=== PATIENT | male | born 1955 | race Caucasian/White ===

== ENCOUNTER 2019-11-09 10:27 | Outpatient (REF) | payer BC, SELFPAY ==
[2019-11-09 21:33] LABS: ALT 25 U/L (16-63); AST 15 U/L (15-37); Albumin 3.8 g/dL (3.4-5.0); Alkaline Phosphatase 69 U/L (46-116); Anion Gap 9.8 mmol/L (3-11); BUN 13 mg/dL (7-18); Bilirubin, Total 0.3 mg/dL (0.2-1.0); CO2 28.2 mmol/L (21.0-32.0); CREATININE 1.06 mg/dL (0.70-1.30); Calcium 8.9 mg/dL (8.5-10.1); Calculated LDL 132 mg/dL; Chloride 105 mmol/L (98-107); Cholesterol 198 mg/dL (<200); Glucose 105 mg/dL (74-106); HDL Cholesterol 41 mg/dL (40-60); Potassium 4.2 mmol/L (3.5-5.1); Sodium 143 mmol/L (136-145); Triglyceride 127 mg/dL (<150)
[2019-11-11 10:18] LABS: PSA, Screening 0.7 ng/mL (0.0-4.5)
== END 2019-11-09 10:47 ==
LOC: LBN 10:27
PROVIDERS: PCP Internal Medicine; Visit Provider Internal Medicine
DX: E78.5 Hyperlipidemia, unspecified (principal); Z00.00 Encounter for general adult medical examination without abnormal findings; N40.0 Benign prostatic hyperplasia without lower urinary tract symptoms; Z12.5 Encounter for screening for malignant neoplasm of prostate; J45.30 Mild persistent asthma, uncomplicated
CPT/HCPCS: 80053; 80061; 84153

== ENCOUNTER 2019-11-12 20:26 | Outpatient (REF) | payer BC, SELFPAY ==
[2019-11-12 20:19] LABS: Absolute Basophil Count 0.02 k/cumm (0.0-0.2); Absolute Eosinophil Count 0.07 k/cumm (0.0-0.7); Absolute Lymphocyte Count 1.37 k/cumm (1.2-3.4); Absolute Monocyte Count 0.57 k/cumm (0.11-0.7); Absolute Neutrophil Count 3.46 k/cumm (1.2-6.7); Basophils % 0.4; Eosinophils % 1.3; HCT 42.5 % (40.0-50.0); HGB 14.5 g/dL (13.5-17.5); Mean Corp. HGB Concentration 34.1 g/dL (32.0-36.0); Mean Corpuscular Hemoglobin 33.9 pg (27.0-33.0); Mean Corpuscular Volume 99.3 fL (80-95); Mean Platelet Volume 9.5 fL (8.0-11.0); Monocytes % 10.4; Neutrophils % 62.9; Platelet Count 243 x1000/uL (130-400); RBC 4.28 m/cumm (4.50-6.00); RBC Distribution Width 12.9 % (11.8-14.1); White Blood Cell Count 5.49 k/cumm (4.4-10.8)
[2019-11-12 20:38] LABS: TSH (W/Ref FT4) 3.99 uIU/mL (0.36-3.74)
[2019-11-12 20:54] LABS: FREE T4 0.86 ng/dL (0.76-1.46)
== END 2019-11-12 20:46 ==
LOC: NCHCN 20:26
PROVIDERS: PCP Internal Medicine; Visit Provider Internal Medicine
DX: R53.83 Other fatigue (principal)
CPT/HCPCS: 84439; 84443; 85025

== ENCOUNTER 2020-04-26 13:11 | Outpatient (REF) | payer BC, SELFPAY ==
[2020-04-26 22:14] LABS: Hemoglobin A1C 5.4 % (3.8-5.6)
[2020-04-26 22:16] LABS: Calculated LDL 137 mg/dL (<100); Cholesterol 207 mg/dL (<200); Glucose 93 mg/dL (74-106); HDL Cholesterol 50 mg/dL (40-60); TSH (W/Ref FT4) 4.35 uIU/mL (0.36-3.74); Triglyceride 100 mg/dL (<150)
[2020-04-26 22:42] LABS: FREE T4 0.95 ng/dL (0.76-1.46)
== END 2020-04-26 13:31 ==
LOC: NCHCN 13:11
PROVIDERS: PCP Internal Medicine; Visit Provider Internal Medicine
DX: R73.01 Impaired fasting glucose (principal); R53.83 Other fatigue; E78.5 Hyperlipidemia, unspecified; E03.9 Hypothyroidism, unspecified
CPT/HCPCS: 80061; 82947; 83036; 84439; 84443

== ENCOUNTER 2020-11-13 14:03 | Outpatient (REF) | payer BC, SELFPAY ==
[2020-11-13 13:48] LABS: BUN 14 mg/dL (7-18); CREATININE 1.03 mg/dL (0.70-1.30); Calcium 9.1 mg/dL (8.5-10.1); Calculated LDL 123 mg/dL (<100); Chloride 104 mmol/L (98-107); Cholesterol 191 mg/dL (<200); Glucose 91 mg/dL (74-106); HDL Cholesterol 57 mg/dL (40-60); Potassium 4.1 mmol/L (3.5-5.1); Sodium 138 mmol/L (136-145); Triglyceride 55 mg/dL (<150)
[2020-11-13 14:10] LABS: Hemoglobin A1C 5.4 % (<5.7)
== END 2020-11-13 14:23 ==
LOC: NCHCN 14:03
PROVIDERS: PCP Internal Medicine; Visit Provider Internal Medicine
DX: Z00.00 Encounter for general adult medical examination without abnormal findings (principal); R73.03 Prediabetes; E03.9 Hypothyroidism, unspecified; E78.5 Hyperlipidemia, unspecified
CPT/HCPCS: 80048; 80061; 83036

== ENCOUNTER 2021-11-19 15:56 | Outpatient (REF) | payer BC, SELFPAY ==
[2021-11-19 16:19] LABS: Hemoglobin A1C 5.5 % (<5.7)
[2021-11-19 16:51] LABS: Anion Gap 7.2 mmol/L (3-11); BUN 20 mg/dL (7-18); CO2 28.8 mmol/L (21.0-32.0); Calcium 8.8 mg/dL (8.5-10.1); Calculated LDL 120 mg/dL (<100); Chloride 104 mmol/L (98-107); Cholesterol 191 mg/dL (<200); Glucose 93 mg/dL (74-106); HDL Cholesterol 51 mg/dL (40-60); Sodium 140 mmol/L (136-145); Triglyceride 100 mg/dL (<150)
[2021-11-19 17:11] LABS: FREE T4 0.85 ng/dL (0.76-1.46)
== END 2021-11-19 15:57 | disposition home or self-care (01) ==
LOC: NCHCN 15:56
PROVIDERS: PCP Internal Medicine; Visit Provider Internal Medicine
DX: Z00.00 Encounter for general adult medical examination without abnormal findings (principal); R73.03 Prediabetes; E03.9 Hypothyroidism, unspecified; E78.5 Hyperlipidemia, unspecified
CPT/HCPCS: 80048; 80061; 83036; 84439; 84443

== ENCOUNTER 2022-10-22 17:54 | Outpatient (REF) | payer BC, SELFPAY ==
[2022-10-22 17:18] LABS: Calculated LDL 69 mg/dL (<100); Cholesterol 140 mg/dL (<200); Glucose 97 mg/dL (74-106); HDL Cholesterol 62 mg/dL (40-60); TSH (W/Ref FT4) 3.84 uIU/mL (0.36-3.74); Triglyceride 45 mg/dL (<150)
[2022-10-22 17:35] LABS: FREE T4 0.82 ng/dL (0.76-1.46)
[2022-10-23 18:28] LABS: PSA, Screening 0.8 ng/mL (<=4.5)
== END 2022-10-22 17:55 | disposition home or self-care (01) ==
LOC: NCHCN 17:54
PROVIDERS: PCP Internal Medicine; Visit Provider Internal Medicine
DX: Z00.00 Encounter for general adult medical examination without abnormal findings (principal); R73.03 Prediabetes; E03.9 Hypothyroidism, unspecified; Z12.5 Encounter for screening for malignant neoplasm of prostate; E78.5 Hyperlipidemia, unspecified; Z13.21 Encounter for screening for nutritional disorder
CPT/HCPCS: 80061; 82306; 82947; 84153; 84439; 84443

== ENCOUNTER 2022-12-13 12:44 | Outpatient (REF) | payer BC, SELFPAY ==
[2022-12-13 20:53] LABS: Absolute Basophil Count 0.04 10^3/uL (0.0-0.2); Absolute Eosinophil Count 0.08 10^3/uL (0.0-0.7); Absolute Lymphocyte Count 1.25 10^3/uL (1.2-3.4); Absolute Monocyte Count 0.38 10^3/uL (0.1-0.8); Absolute Neutrophil Count 2.74 10^3/uL (1.2-6.7); Basophils % 0.9; Eosinophils % 1.8; HCT 44.8 % (40.0-50.0); HGB 15.1 g/dL (13.5-17.5); Lymphocytes % 27.8; MCHC 33.7 % (32.0-36.0); MCV 98 fL (80-95); MPV 10.6 fL (8.0-11.0); Monocytes % 8.5; Platelet Count 200 10^3/uL (130-400); RBC 4.57 10^6/uL (4.36-5.78); RDW 12.5 % (11.8-14.1); RDW-SD 45.1 fL; WBC 4.49 10^3/uL (4.4-10.8)
[2022-12-13 21:32] LABS: Vitamin B12 652 pg/mL (193-986)
== END 2022-12-13 12:45 | disposition home or self-care (01) ==
LOC: NCHCN 12:44
PROVIDERS: PCP Internal Medicine; Visit Provider Family Medicine
DX: D75.89 Other specified diseases of blood and blood-forming organs (principal); R22.2 Localized swelling, mass and lump, trunk; R53.83 Other fatigue; Z13.21 Encounter for screening for nutritional disorder
CPT/HCPCS: 82607; 85025

== ENCOUNTER 2023-10-22 11:48 | Outpatient (REF) | payer MEDICARE, SELFPAY ==
[2023-10-22 21:18] LABS: Abs Immature Grans 0.02 10^3/uL (0.0-0.06); Absolute Basophil Count 0.04 10^3/uL (0.0-0.2); Absolute Eosinophil Count 0.05 10^3/uL (0.0-0.7); Absolute Neutrophil Count 4.23 10^3/uL (1.2-6.7); Basophils % 0.7; Eosinophils % 0.8; HCT 44.4 % (40.0-50.0); HGB 15.2 g/dL (13.5-17.5); Immature Grans % 0.3; Lymphocytes % 18.5; MCH 33.4 pg (27.0-33.0); MCHC 34.2 % (32.0-36.0); MCV 98 fL (80-95); MPV 9.7 fL (8.0-11.0); Monocytes % 8.4; Neutrophils % 71.3; Platelet Count 237 10^3/uL (130-400); RBC 4.55 10^6/uL (4.36-5.78); RDW 12.3 % (11.8-14.1); RDW-SD 44.6 fL; WBC 5.94 10^3/uL (4.4-10.8)
[2023-10-22 21:28] LABS: ALT 28 U/L (16-63); AST 23 U/L (15-37); Albumin 3.8 g/dL (3.4-5.0); Alkaline Phosphatase 80 U/L (46-116); Anion Gap 7.1 mmol/L (3-11); BUN 16 mg/dL (7-18); Bilirubin, Total 0.4 mg/dL (0.2-1.0); CO2 28.9 mmol/L (21.0-32.0); Calcium 9.3 mg/dL (8.5-10.1); Chloride 103 mmol/L (98-107); Estimated GFR 80.97 (mL/min/1.73m2); Glucose 115 mg/dL (74-106); Potassium 4.5 mmol/L (3.5-5.1); Sodium 139 mmol/L (136-145); Total Protein 8.1 g/dL (6.4-8.2)
[2023-10-22 21:44] LABS: Hemoglobin A1C 5.6 % (<5.7)
== END 2023-10-22 11:49 | disposition home or self-care (01) ==
LOC: NCHCN 11:48
PROVIDERS: PCP Internal Medicine; Visit Provider Physician Assistant
DX: Z00.00 Encounter for general adult medical examination without abnormal findings (principal); R04.0 Epistaxis; R73.03 Prediabetes
CPT/HCPCS: 80053; 83036; 85025

== ENCOUNTER 2024-11-17 12:50 | Outpatient (REF) | payer MEDICARE, SELFPAY | END 2024-11-17 12:51 | disposition home or self-care (01) | LOC: NCHCN 12:50 | PROVIDERS: PCP Internal Medicine; Visit Provider Internal Medicine | DX: R30.0 Dysuria (principal); R82.89 Other abnormal findings on cytological and histological examination of urine | CPT/HCPCS: 87086 ==

== ENCOUNTER 2024-12-09 13:23 | Outpatient (REF) | payer MEDICARE, SELFPAY ==
[2024-12-09 14:11] LABS: HCT 46.1 % (40.0-50.0); HGB 15.4 g/dL (13.5-17.5); MCH 33.6 pg (27.0-33.0); MCHC 33.4 % (32.0-36.0); MCV 101 fL (80-95); MPV 9.7 fL (8.0-11.0); Platelet Count 178 10^3/uL (130-400); RBC 4.58 10^6/uL (4.36-5.78); RDW 12.8 % (11.8-14.1); RDW-SD 47.8 fL; WBC 4.65 10^3/uL (4.4-10.8)
[2024-12-09 15:24] LABS: ALT 40 U/L (16-63); AST 24 U/L (15-37); Albumin 4.1 g/dL (3.4-5.0); Alkaline Phosphatase 74 U/L (46-116); BUN 15 mg/dL (7-18); Bilirubin, Total 0.52 mg/dL (0.2-1.0); CREATININE 0.9 mg/dL (0.70-1.30); Calcium 9.5 mg/dL (8.5-10.1); Calculated LDL 55 mg/dL (<100); Chloride 107 mmol/L (98-107); Cholesterol 130 mg/dL (<200); Estimated GFR 91.31 (mL/min/1.73m2); Glucose 104 mg/dL (74-106); HDL Cholesterol 68 mg/dL (40-60); Potassium 4.5 mmol/L (3.5-5.1); Sodium 142 mmol/L (136-145); TSH 4.53 uIU/mL (0.36-3.74); Total Protein 7.8 g/dL (6.4-8.2); Triglyceride 35 mg/dL (<150)
[2024-12-09 15:32] LABS: Hemoglobin A1C 5.6 % (<5.7)
== END 2024-12-09 13:24 | disposition home or self-care (01) ==
LOC: NCHCN 13:23
PROVIDERS: PCP Internal Medicine; Visit Provider Internal Medicine
DX: E02 Subclinical iodine-deficiency hypothyroidism (principal); R73.03 Prediabetes; D75.89 Other specified diseases of blood and blood-forming organs
CPT/HCPCS: 80053; 80061; 85027; 83036; 84443

== ENCOUNTER 2025-01-17 14:44 | Outpatient (REF) | payer MEDICARE, SELFPAY ==
[2025-01-19 12:56] LABS: IgA 350 mg/dL (85-499); Interpretation (See Note); Tissue Transglutaminase IgA <4.0 CU (<20.0)
== END 2025-01-17 14:45 | disposition home or self-care (01) ==
LOC: NCHCN 14:44
PROVIDERS: PCP Internal Medicine; Visit Provider Internal Medicine
DX: R14.0 Abdominal distension (gaseous) (principal)
CPT/HCPCS: 82784; 83516